=== PATIENT | male | born 1985 | race African-American/Black ===

== ENCOUNTER 2023-07-09 11:23 | Emergency (ER) | payer MEDICAID, OTHER ==
[~2023-07-09] VITALS: Ht 193 cm; Wt 89.0 kg
[2023-07-09 14:40] VITALS: PULSE 70; RESP 18; O2SAT 99
[2023-07-09] MEDS ORDERED: LISI10TA34 PO (14:42)
[2023-07-09] MEDS ORDERED: HYDR25TA5 PO (14:42)
[2023-07-09 14:45] VITALS: BP 132/83; PULSE 87; RESP 18; TEMP 97.8; O2SAT 99
== END 2023-07-09 14:53 | disposition home or self-care (01) ==
LOC: ER 11:23
DX: I10 Essential (primary) hypertension (principal); Z76.0 Encounter for issue of repeat prescription; Z79.899 Other long term (current) drug therapy